=== PATIENT | female | born 2000 | race Hispanic/Latino ===

== ENCOUNTER 2019-02-06 11:15 | Emergency (ER) | payer OTHER ==
[~2019-02-06] VITALS: Ht 157.5 cm; Wt 69.9 kg
--- OUTSIDE RECORDS SUMMARY | 2019-02-06 11:18 | XMS REPORT ---
[facility] Address Unknown Phone Unavailable Care Team Providers Care Eyelet Operator Name Role Phone Unavailable Unavailable Payers Payer Name Policy Type Policy Number Effective Date Expiration Date Problems This patient has no known problems. Allergies, Adverse Reactions, Alerts Allergy Name Allergy Type Status Severity Reaction(s) Onset Date Inactive Date Treating Clinician Comments No Known Allergies DA Active U 2018-12-12 00:00:00 No Known Allergies DA Active U 2017-10-05 00:00:00 Medications This patient has no known medications. Encounters Start Date/Time End Date/Time Encounter Type Admission Type Attending Clinicians Care Facility Care Department Encounter ID 2019-03-26 00:00:00 2019-03-26 00:00:00 Outpatient [facility] [id number] 2019-03-26 00:00:00 2019-03-26 00:00:00 Outpatient [facility] [id number] 2019-03-12 00:00:00 2019-03-12 00:00:00 Outpatient [facility] [id number] 2019-03-11 00:00:00 2019-03-11 00:00:00 Outpatient [facility] [id number] 2019-03-04 00:00:00 2019-03-04 00:00:00 Outpatient [facility] [id number] 2019-02-21 00:00:00 2019-02-21 00:00:00 Outpatient [facility] [id number] 2019-02-17 00:00:00 2019-02-17 00:00:00 Outpatient [facility] [id number] 2019-02-12 00:00:00 2019-02-12 00:00:00 Outpatient [facility] [id number] 2019-01-08 00:00:00 2019-01-08 00:00:00 Outpatient [facility] [id number] 2019-01-07 00:00:00 2019-01-07 00:00:00 Outpatient [facility] [id number] 2019-01-02 00:00:00 2019-01-02 00:00:00 Outpatient [facility] [id number] 2019-01-02 00:00:00 2019-01-02 00:00:00 Outpatient [facility] [id number] 2019-01-01 00:00:00 2019-01-01 00:00:00 Outpatient [facility] [id number] 2018-12-27 12:59:20 2018-12-27 12:59:20 Outpatient [facility] [id number] 2018-12-27 00:00:00 2018-12-27 00:00:00 Outpatient [facility] [id number] 2018-12-26 00:00:00 2018-12-26 00:00:00 Outpatient [facility] [id number] 2018-12-25 00:00:00 2018-12-25 00:00:00 Outpatient [facility] [id number] 2018-12-24 15:47:49 2018-12-24 15:47:49 Outpatient [facility] [id number] 2018-12-24 12:56:40 2018-12-24 12:56:40 Outpatient [facility] [id number] 2018-12-24 00:00:00 2018-12-24 00:00:00 Outpatient [facility] [id number] 2018-12-18 10:04:25 2018-12-18 10:04:25 Outpatient [facility] [id number] 2018-11-27 00:00:00 2018-11-27 00:00:00 Outpatient [facility] [id number] 2018-11-27 00:00:00 2018-11-27 00:00:00 Outpatient [facility] [id number] 2018-11-25 13:39:46 2018-11-25 13:39:46 Outpatient [facility] [id number] 2018-11-25 12:56:47 2018-11-25 12:56:47 Outpatient [facility] [id number] 2018-11-25 00:00:00 2018-11-25 00:00:00 Outpatient [facility] [id number] 2018-11-25 00:00:00 2018-11-25 00:00:00 Outpatient [facility] [id number] 2018-11-20 16:14:00 2018-11-20 16:14:00 Emergency [facility] [id number] 2018-11-19 00:00:00 2018-11-19 00:00:00 Outpatient [facility] [id number] 2018-11-18 13:56:45 2018-11-18 13:56:45 Outpatient [facility] [id number] 2018-11-07 00:00:00 2018-11-07 00:00:00 Outpatient [facility] [id number] 2018-10-24 08:45:36 2018-10-24 08:45:36 Outpatient [facility] [id number] 2018-10-02 13:53:03 2018-10-02 13:53:03 Outpatient [facility] [id number] 2018-09-04 07:49:09 2018-09-04 07:49:09 Outpatient [facility] [id number] 2018-08-07 16:33:36 2018-08-07 16:33:36 Outpatient [facility] [id number] 2018-08-07 15:18:04 2018-08-07 15:18:04 Outpatient [facility] [id number] 2018-07-10 00:00:00 2018-07-10 00:00:00 Outpatient [facility] [id number] 2018-06-25 09:31:53 2018-06-25 09:31:53 Outpatient [facility] [id number] 2018-04-26 00:00:00 2018-04-26 00:00:00 Outpatient [facility] [id number] 2018-04-17 00:00:00 2018-04-17 00:00:00 Outpatient [facility] [id number] 2018-03-11 10:42:48 2018-03-11 10:42:48 Outpatient [facility] [id number] 2018-02-26 00:00:00 2018-02-26 00:00:00 Outpatient [facility] [id number] 2018-02-19 00:00:00 2018-02-19 00:00:00 Outpatient [facility] [id number] 2018-01-30 14:31:16 2018-01-30 14:31:16 Outpatient [facility] [id number] 2018-01-17 00:00:00 2018-01-17 00:00:00 Outpatient [facility] [id number] 2018-01-16 16:44:28 2018-01-16 16:44:28 Outpatient [facility] [id number] 2018-01-16 15:40:26 2018-01-16 15:40:26 Outpatient [facility] [id number] 2018-01-16 00:00:00 2018-01-16 00:00:00 Outpatient [facility] [id number] 2017-12-20 00:00:00 2017-12-20 00:00:00 Outpatient [facility] [id number] 2017-12-10 00:00:00 2017-12-10 00:00:00 Outpatient [facility] [id number] 2017-11-19 00:00:00 2017-11-19 00:00:00 Outpatient [facility] [id number] 2017-10-30 00:00:00 2017-10-30 00:00:00 Outpatient [facility] [id number] 2017-10-24 09:45:46 2017-10-24 09:45:46 Outpatient [facility] [id number] 2017-10-22 09:25:41 2017-10-22 09:25:41 Outpatient [facility] [id number] 2017-10-09 03:36:15 2017-10-09 03:36:[address] [facility] [id number] 2017-10-08 14:17:05 2017-10-08 14:17:05 Outpatient [facility] [id number] 2017-10-08 13:16:43 2017-10-08 13:16:43 Outpatient [facility] [id number] 2017-09-24 11:23:00 2017-09-24 11:23:00 Outpatient [facility] [id number] 2017-09-21 19:25:13 2017-09-21 19:25:[address] [facility] [id number] 2017-09-03 13:41:01 2017-09-03 13:41:01 Outpatient [facility] [id number] 2017-08-29 10:48:43 2017-08-29 10:48:43 Outpatient [facility] [id number] 2017-08-08 13:45:23 2017-08-08 13:45:23 Outpatient [facility] [id number] 2017-07-27 11:15:32 2017-07-27 11:15:32 Emergency [facility] [id number] 2017-07-27 09:36:05 2017-07-27 09:36:05 Emergency [facility] [id number] Results Test Description Test Time Test Comments Text Results Atomic Results Result Comments URINALYSIS COMPLETE 2019-02-06 02:44:00 UA COLOR (test code=COLU) Light-Yellow YELLOW UA APPEARANCE (test code=APPU) CLEAR CLEAR UA GLUCOSE DIPSTICK (test code=DGLUU) NEGATIVE mg/dL NEGATIVE UA BILIRUBIN DIPSTICK (test code=BILU) NEGATIVE mg/dL NEGATIVE UA KETONE DIPSTICK (test code=KETU) NEGATIVE mg/dL NEGATIVE UA SPECIFIC GRAVITY (test code=SGU) 1.009 1.001-1.035 UA BLOOD DIPSTICK (test code=SOREN) Negative mg/dL NEGATIVE UA PH DIPSTICK (test code=LISBETH) 7.5 5.0-8.0 UA PROTEIN DIPSTICK (test code=PROU) NEGATIVE mg/dL NEGATIVE UA UROBILINIOGEN DIPSTICK (test code=URO) Normal mg/dL NEGATIVE UA NITRITE DIPSTICK (test code=HELLEN) NEGATIVE NEGATIVE UA LEUKOCYTE ESTERASE W REFLEX (test code=LEUUR) NEGATIVE Ruthy/uL NEGATIVE UA WBC (test code=WBCU) 0-5 per HPF 0-5 UA RBC (test code=RBCU) 0-2 #/HPF 0-5 UA EPITHELIAL CELLS (test code=EPIU) FEW per HPF FEW UA BACTERIA (test code=BACU) NONE SEEN #/HPF NONE UA MUCUS (test code=MUCU) FEW #/LPF FEW Urine Source? Clean CatchBASIC METABOLIC [id number] 02:49:00* Test Item Value Reference Range Comments SODIUM (test code=NA) 138 mmol/L 136-145 POTASSIUM (test code=K) 3.6 mmol/L 3.5-5.1 CHLORIDE (test code=CL) 105.0 mmol/L 98-107 CARBON DIOXIDE (test code=CO2) 23.0 mmol/L 21-32 ANION GAP (test code=GAP) 13.6 10-20 GLUCOSE (test code=GLU) 79 mg/dL 74-106 BLOOD UREA NITROGEN (test code=BUN) 9 mg/dL 7-18 GLOMERULAR FILTRATION RATE (test code=GFR) > 60 mL/min >=60 Estimated GFR by using Modified MDRD formula.Chronic kidney disease is defined as either kidney damageor GFR <60 mL/min/1.73 m2 for >3 months. CREATININE (test code=CREAT) 0.70 mg/dL 0.55-1.02 Note change in reference range due to change in reagent. BUN/CREATININE RATIO (test code=BUN/CREA) 12.9 10-20 CALCIUM (test code=CA) 9.3 mg/dL 8.5-10.1 HEPATIC FUNCTION [id number] 02:49:00* Test Item Value Reference Range Comments TOTAL PROTEIN (test code=PROT) 8.3 gram/dL 6.4-8.2 ALBUMIN (test code=ALB) 3.8 g/dL 3.4-5.0 GLOBULIN (test code=GLOB) 4.5 gram/dL 2.7-4.2 ALBUMIN/GLOBULIN RATIO (test code=A/G) 0.8 0.75-1.50 BILIRUBIN TOTAL (test code=BILT) 0.30 mg/dL 0.0-1.0 BILIRUBIN DIRECT (test code=BILD) 0.08 mg/dL 0.0-0.20 SGOT/AST (test code=AST) 8 IUnit/L 15-37 SGPT/ALT (test code=ALT) 20 IUnit/L 12-78 ALKALINE PHOSPHATASE TOTAL (test code=ALKP) 98 IUnit/L 45-117 Note change in reference range due to change in reagent. [id number] 02:49:00* Test Item Value Reference Range Comments LIPASE (test code=LIP) 73 U/L 73.0-393.0 HCG SERUM [id number] 02:49:00* Test Item Value Reference Range Comments HCG SERUM BETA (test code=HCG) 756118.0 mIU/mL 0-3 Interfering substances present in the serum of somepatients may cause a false-positive result in this assay.Questionable elevations in serum hCG should be confirmedwith a urine hCG. Suspected Trophoblastic Neoplasms shouldnot be diagnosed based on serun hCG/beta hCG alone. Theymust be confirmed by clinical history and tissue diagnosis.INTERPRETATION:B-HCG LEVELS <5 SHOULD BE CONSIDERED "NEGATIVE." *WHEN BODERLINE RESULTS ARE ENCOUNTERED,PATIENT SAMPLESSHOULD BE REDRAWN 48 HOURS. 0-1 WEEKS AFTER CONCEPTION 5-50 MIU/ML1-2 WEEKS AFTER CONCEPTION 50-500 MIU/ML2-3 WEEKS AFTER CONCEPTION 100 -5,000 MIU/ML3-4 WEEKS AFTER CONCEPTION 500-10,000 MIU/ML4-5 WEEKS AFTER CONCEPTION 1000 -50,000 MIU/ML5-6 WEEKS AFTER CONCEPTION 10,000-100,000 MIU/ML6-8 WEEKS AFTER CONCEPTION 15,000- 200,000 MIU/ML2-3 MONTHS AFTER CONCEPTION 10,000-100,000 MIU/ML BASIC METABOLIC [id number] 02:31:00* Test Item Value Reference Range Comments SODIUM (test code=NA) 138 mmol/L 136-145 POTASSIUM (test code=K) 3.6 mmol/L 3.5-5.1 CHLORIDE (test code=CL) 105.0 mmol/L 98-107 CARBON DIOXIDE (test code=CO2) mmol/L 21-32 ANION GAP (test code=GAP) 10-20 GLUCOSE (test code=GLU) mg/dL 74-106 BLOOD UREA NITROGEN (test code=BUN) mg/dL 7-18 GLOMERULAR FILTRATION RATE (test code=GFR) mL/min >=60 CREATININE (test code=CREAT) mg/dL 0.55-1.02 BUN/CREATININE RATIO (test code=BUN/CREA) 10-20 CALCIUM (test code=CA) mg/dL 8.5-10.1 HEPATIC FUNCTION [id number] 02:31:00* Test Item Value Reference Range Comments TOTAL PROTEIN (test code=PROT) gram/dL 6.4-8.2 ALBUMIN (test code=ALB) g/dL 3.4-5.0 GLOBULIN (test code=GLOB) gram/dL 2.7-4.2 ALBUMIN/GLOBULIN RATIO (test code=A/G) 0.75-1.50 BILIRUBIN TOTAL (test code=BILT) mg/dL 0.0-1.0 BILIRUBIN DIRECT (test code=BILD) mg/dL 0.0-0.20 SGOT/AST (test code=AST) IUnit/L 15-37 SGPT/ALT (test code=ALT) IUnit/L 12-78 ALKALINE PHOSPHATASE TOTAL (test code=ALKP) IUnit/L 45-117 [id number] 02:31:00* Test Item Value Reference Range Comments LIPASE (test code=LIP) U/L 73.0-393.0 HCG SERUM [id number] 02:31:00* Test Item Value Reference Range Comments HCG SERUM BETA (test code=HCG) mIU/mL 0-3 URINALYSIS [id number] 02:18:00* Test Item Value Reference Range Comments UA COLOR (test code=COLU) COLORLESS YELLOW UA APPEARANCE (test code=APPU) CLEAR CLEAR UA GLUCOSE DIPSTICK (test code=DGLUU) NEGATIVE mg/dL NEGATIVE UA BILIRUBIN DIPSTICK (test code=BILU) NEGATIVE mg/dL NEGATIVE UA KETONE DIPSTICK (test code=KETU) NEGATIVE mg/dL NEGATIVE UA SPECIFIC GRAVITY (test code=SGU) 1.007 1.001-1.035 UA BLOOD DIPSTICK (test code=SOREN) Negative mg/dL NEGATIVE UA PH DIPSTICK (test code=LISBETH) 6.5 5.0-8.0 UA PROTEIN DIPSTICK (test code=PROU) NEGATIVE mg/dL NEGATIVE UA UROBILINIOGEN DIPSTICK (test code=URO) Normal mg/dL NEGATIVE UA NITRITE DIPSTICK (test code=HELLEN) NEGATIVE NEGATIVE UA LEUKOCYTE ESTERASE W REFLEX (test code=LEUUR) NEGATIVE Ruthy/uL NEGATIVE UA WBC (test code=WBCU) 0-5 per HPF 0-5 UA RBC (test code=RBCU) NONE SEEN #/HPF 0-5 UA EPITHELIAL CELLS (test code=EPIU) FEW per HPF FEW UA BACTERIA (test code=BACU) NONE SEEN #/HPF NONE Urine Source? Clean CatchCBC W/O [id number] 02:17:00* Test Item Value Reference Range Comments WHITE BLOOD CELL (test code=WBC) 17.9 K/mm3 4.5-12.5 RED BLOOD CELL (test code=RBC) 4.48 mill/mm3 3.7-5.2 HEMOGLOBIN (test code=HGB) 13.5 gram/dL 11.5-15.5 HEMATOCRIT (test code=HCT) 40.2 % 36.0-46.0 MEAN CELL VOLUME (test code=MCV) 89.7 fL 80-98 MEAN CELL HGB (test code=MCH) 30.1 picogram 27.0-33.0 MEAN CELL HGB CONCETRATION (test code=MCHC) 33.6 gram/dL 33.0-36.0 RED CELL DISTRIBUTION WIDTH (test code=RDW) 13.1 % 11.6-16.2 PLATELET COUNT (test code=PLT) 245 K/mm3 150-450 MEAN PLATELET VOLUME (test code=MPV) 11.7 fL 6.7-11.0 CBC W/O [id number] 02:14:00* Test Item Value Reference Range Comments WHITE BLOOD CELL (test code=WBC) K/mm3 4.5-12.5 RED BLOOD CELL (test code=RBC) mill/mm3 3.7-5.2 HEMOGLOBIN (test code=HGB) 13.5 gram/dL 11.5-15.5 HEMATOCRIT (test code=HCT) 40.2 % 36.0-46.0 MEAN CELL VOLUME (test code=MCV) fL 80-98 MEAN CELL HGB (test code=MCH) picogram 27.0-33.0 MEAN CELL HGB CONCETRATION (test code=MCHC) gram/dL 33.0-36.0 RED CELL DISTRIBUTION WIDTH (test code=RDW) % 11.6-16.2 PLATELET COUNT (test code=PLT) K/mm3 150-450 MEAN PLATELET VOLUME (test code=MPV) fL 6.7-11.0 - US PREG UT [id number] 14:33:00 Patient Name: ORLANDO DE LA GARZA Unit No: [id number] EXAMS: CPT CODE: [id number] US PREG UT TRANSVAGINAL 42491 CLINICAL HISTORY: , 4 weeks , pelvic pain. COMPARISON: None. Real-time ultrasound examination of pelvis was performed using transabdominal and endovaginal approach. Uterus measures 8.2 x 3.8 x 4.9 cm in greatest dimensions with a 2 mm intrauterine saclike structure. Yolk sac or embryo is not identified within this saclike structure. Correlation with sequential hCG titers and short-term follow-up with repeat ultrasound in 7-10 days is recommended to evaluate progress of . Changes related to C- section are present in lower uterine segment. It is no evidence of uterine fibroid or other significant uterine abnormality. Right ovary measures 44 x 39 x 47 mm and contains a 35 x 39 x 40 mm cyst with a few low-level echoes within it. It has benign sonographic appearance. Left ovary measures 33 x 15 x 22 mm and has normal sonographic appearance. There is no extraovarian adnexal mass or free fluid in the pelvis. IMPRESSION: 1. 2 mm sac like structure in the uterus without a yolk sac or embryo. This most likely represents an early intrauterine gestation. Correlation with hCG titers and short-term follow-up is recommended for confirmation. 2. Benign-appearing cysts in the right ovary. 3. No extraovarian adnexal masses seen. at 1433 Reported and signed by: Davian Marks MD CC: Arlen Lee; Allan Stewart MD Technologist: Mimi Baxter RDMS Probe: [id number] Trnscrbd D/ (2912) t.ANALY Orig Print D/T: S: 12/25/2018 (7280) [facility] NAME: HOLLIORLANDO Radiology Department PHYS: Allan Talamantes [address] : 2000 AGE: 18 SEX: F [place], [place] [address] LOC: [place] PHONE #: [phone] EXAM DATE: 12/25/2018 STATUS: REG ER FAX #: [phone] RAD NO: Page 1 Signed Report Patient Name: ORALNDO DE LA GARZA Unit No: [id number] EXAMS: CPT CODE: [id number] [facility] TRANSVAGINAL [address] <Continued> [facility] NAME: ORLANDO DE LA GARZA Radiology Department PHYS: Allan Talamantes [address] : 2000 AGE: 18 SEX: F [place], [place] [address] LOC: [place] PHONE #: [phone] EXAM DATE: 12/25/2018 STATUS: RADHA DARLING FAX #: [phone] RAD NO: Page 2 Signed Report - US PREG EVAL 1ST [id number] 14:33:00 Patient Name: ORLANDO DE LA GARZA Unit No: [id number] EXAMS: CPT CODE: [id number] US PREG EVAL 1ST TRIMTR 97167 CLINICAL HISTORY: , 4 weeks , pelvic pain. COMPARISON: None. Real-time ultrasound examination of pelvis was performed using transabdominal and endovaginal approach. Uterus measures 8.2 x 3.8 x 4.9 cm in greatest dimensions with a 2 mm intrauterine saclike structure. Yolk sac or embryo is not identified within this saclike structure. Correlation with sequential hCG titers and short-term follow-up with repeat ultrasound in 7-10 days is recommended to evaluate progress of . Changes related to C- section are present in lower uterine segment. It is no evidence of uterine fibroid or other significant uterine abnormality. Right ovary measures 44 x 39 x 47 mm and contains a 35 x 39 x 40 mm cyst with a few low-level echoes within it. It has benign sonographic appearance. Left ovary measures 33 x 15 x 22 mm and has normal sonographic appearance. There is no extraovarian adnexal mass or free fluid in the pelvis. IMPRESSION: 1. 2 mm sac like structure in the uterus without a yolk sac or embryo. This most likely represents an early intrauterine gestation. Correlation with hCG titers and short-term follow-up is recommended for confirmation. 2. Benign-appearing cysts in the right ovary. 3. No extraovarian adnexal masses seen. at 1438 Reported and signed by: Davian Marks MD CC: Arlen Lee; Allan Stewart MD Technologist: Mimi Baxter RDMS Probe: Trnscrbd D/ (7737) t.SDR.YOS Orig Print D/T: S: 12/25/2018 (1657) [facility] NAME: ORLANDO DE LA GARZA Radiology Department PHYS: Allan Talamantes [address] : 2000 AGE: 18 SEX: F [place] [address] LOC: [place] PHONE #: [phone] EXAM DATE: 12/25/2018 STATUS: REG ER FAX #: [phone] RAD NO: Page 1 Signed Report Patient Name: ORLANDO DE LA GARZA Unit No: [id number] EXAMS: CPT CODE: [id number] US PREG EVAL 1ST TRIMTR 24908 <Continued> [facility] NAME: ORLANDO DE LA GARZA Radiology Department PHYS: Allan Talamantes [address] : 2000 AGE: 18 SEX: F [place] [address] LOC: [place] PHONE #: [phone] EXAM DATE: 12/25/2018 STATUS: REG ER FAX #: [phone] RAD NO: Page 2 Signed Report COMPREHENSIVE METABOLIC [id number] 11:56:00* Test Item Value Reference Range Comments SODIUM (test code=NA) 139 mEq/L 135-145 POTASSIUM (test code=K) 4.0 mEq/L 3.5-5.0 CHLORIDE (test code=CL) 105 mEq/L 100-115 CARBON DIOXIDE (test code=CO2) 25 mEq/L 22-31 ANION GAP (test code=GAP) 12.60 10-20 GLUCOSE (test code=GLU) 96 mg/dL 65-110 BLOOD UREA NITROGEN (test code=BUN) 7 mg/dL 7-18 GLOMERULAR FILTRATION RATE (test code=GFR) 107 ml/min >60 CREATININE (test code=CREAT) 0.7 mg/dL 0.5-1.0 TOTAL PROTEIN (test code=PROT) 7.9 gm/dL 6.3-8.2 ALBUMIN (test code=ALB) 3.9 gm/dL 3.4-4.8 CALCIUM (test code=CA) 8.8 mg/dL 8.4-10.2 BILIRUBIN TOTAL (test code=BILT) 0.3 mg/dL 0.2-1.0 SGOT/AST (test code=AST) 14 units/L 15-37 SGPT/ALT (test code=ALT) 18 units/L 12-78 ALKALINE PHOSPHATASE TOTAL (test code=ALKP) 103 units/L 46-116 HCG [id number] 11:56:00* Test Item Value Reference Range Comments HCG SERUM (test code=HCG) 510 INTERPRETATION:VALUES BETWEEN 15-20 milliInternational units/mL NEED TO BERETESTED WITHIN 48 HOURS. All units for these ranges are in milliInternationalunits/mL0-1 WK AFTER CONCEPTION 0-50 1-2 WKS AFTER CONCEPTION 40-3002-3 WKS AFTER CONCEPTION 100-1,0003-4 WKS AFTER CONCEPTION 500-6,0001-2 MONTHS AFTER CONCEPTION 5,000-200,0002-3 MONTHS AFTER CONCEPTION 10,000-100,0002ND TRIMESTER 3,000-50,0003RD TRIMESTER 1,000-50,000 SPECIMENS WITH AN HCG LEVEL FROM 0-6 milliInternationalunits/mL SHOULD BE CONSIDERED NEGATIVE CBC W/AUTO [id number] 11:20:00* Test Item Value Reference Range Comments WHITE BLOOD CELL (test code=WBC) 10.7 K/mm3 6.6-12.1 RED BLOOD CELL (test code=RBC) 4.42 M/mm3 3.45-5.01 HEMOGLOBIN (test code=HGB) 13.1 g/dL 10.7-13.9 HEMATOCRIT (test code=HCT) 39.3 % 32.1-42.1 MEAN CELL VOLUME (test code=MCV) 89 fL 84.1-94.8 MEAN CELL HGB (test code=MCH) 29.6 pg 27-35 MEAN CELL HGB CONCETRATION (test code=MCHC) 33.3 gm/dL 32.2-34.1 RED CELL DISTRIBUTION WIDTH (test code=RDW) 12.5 % 12.4-16.5 PLATELET COUNT (test code=PLT) 226 K/mm3 133-385 IMMATURE PLATELET FRACTION (test code=IPF) 0.0 % 0.0-10.8 MEAN PLATELET VOLUME (test code=MPV) 11.0 fl 9.1-12.7 NEUTROPHIL % (test code=NT%) 68.6 % 56.5-79.4 LYMPHOCYTE % (test code=LY%) 24.4 % 14.3-34.3 MONOCYTE % (test code=MO%) 5.3 % 5.1-10.4 EOSINOPHIL % (test code=EO%) 0.8 % 0.1-3.0 BASOPHIL % (test code=BA%) 0.5 % 0.1-1.0 NEUTROPHIL # (test code=NT#) 7.4 K/mm3 LYMPHOCYTE # (test code=LY#) 2.6 K/mm3 MONOCYTE # (test code=MO#) 0.6 K/mm3 EOSINOPHIL # (test code=EO#) 0.09 K/mm3 BASOPHIL # (test code=BA#) 0.1 K/mm3 RBC MORPHOLOGY REQUIRED (test code=RBCM) NORMAL NORMAL PLATELET MORPHOLOGY REQUIRED (test code=PLTMR) NORMAL NORMAL UA RFLX MICR CULT IF [id number] 11:14:00* Test Item Value Reference Range Comments UA COLOR (test code=COLU) YELLOW YELLOW UA APPEARANCE (test code=APPU) Slightly-Cloudy CLEAR UA GLUCOSE DIPSTICK (test code=DGLUU) NEGATIVE NEG UA BILIRUBIN DIPSTICK (test code=BILU) NEGATIVE NEG UA KETONE DIPSTICK (test code=KETU) TRACE NEG UA SPECIFIC GRAVITY (test code=SGU) 1.021 1.001-1.035 UA BLOOD DIPSTICK (test code=SOREN) NEG NEG UA PH DIPSTICK (test code=LISBETH) 6.0 5-9 UA PROTEIN DIPSTICK (test code=PROU) NEGATIVE NEG UA UROBILINIOGEN DIPSTICK (test code=URO) NEGATIVE mg/dL NEG UA NITRITE DIPSTICK (test code=HELLEN) NEG NEG UA LEUKOCYTE ESTERASE DIPSTICK (test code=LEUU) NEG NEG UA WBC (test code=WBCU) 3-5 #/hpf NONE SEEN UA RBC (test code=RBCU) 0-2 #/hpf NONE SEEN UA EPITHELIAL CELLS (test code=EPIU) RARE #/HPF RARE-FEW UA MUCUS (test code=MUCU) 4+ NONE SEEN Indication for culture: Suprapubic Pain- XR CHEST 1 [id number] 02:30:00 FAX: Almas Jennings MD [place]: B St: REG Name: ORLANDO VAZQUEZ [facility] : [birth year] Age/S: 18/F [address] [facility] Unit #: [id number] Loc: [place], [place] [address] Phys: Almas Jennings MD Acct: [id number] Dis Date: Status: REG ER PHONE #: [phone] Exam Date: 12/12/2018 021 FAX #: [phone] Reason: CHEST PAIN EXAMS: CPT CODE: [id number] XR CHEST 1 V 88620 AFTER HOURS SERVICE ON: 12/12/2018 2:30 AM AP Portable Chest Location Code M12 HISTORY: CHEST PAIN FINDINGS: There are no inf iltrates. There are no pleural effusions. There is no pneumothorax. Cardia c silhouette and mediastinum appear within normal limits. IMPRESSION: No active pulmonary findings. at 0230 Reported and signed by: Alicja Altamirano M.D. CC: Almas Jennings MD Technologist: Hernandez SHERWOOD(Naomi) Trnscrd Date/Time/By: 12/12/2018 (0230) : By: [email or web address] Orig Print D/T: S: 12/12/2018 (0233) PAGE 1 Signed Report CBC W/O [id number] 01:16:00* Test Item Value Reference Range Comments WHITE BLOOD CELL (test code=WBC) 15.6 K/mm3 4.5-12.5 RED BLOOD CELL (test code=RBC) 4.60 mill/mm3 3.7-5.2 HEMOGLOBIN (test code=HGB) 13.3 gram/dL 11.5-15.5 HEMATOCRIT (test code=HCT) 41.8 % 36.0-46.0 MEAN CELL VOLUME (test code=MCV) 90.9 fL 80-98 MEAN CELL HGB (test code=MCH) 28.9 picogram 27.0-33.0 MEAN CELL HGB CONCETRATION (test code=MCHC) 31.8 gram/dL 33.0-36.0 RED CELL DISTRIBUTION WIDTH (test code=RDW) 12.2 % 11.6-16.2 PLATELET COUNT (test code=PLT) 252 K/mm3 150-450 MEAN PLATELET VOLUME (test code=MPV) 11.0 fL 6.7-11.0 BASIC METABOLIC [id number] 00:49:00* Test Item Value Reference Range Comments SODIUM (test code=NA) 139 mmol/L 136-145 POTASSIUM (test code=K) 3.7 mmol/L 3.5-5.1 CHLORIDE (test code=CL) 106.0 mmol/L 98-107 CARBON DIOXIDE (test code=CO2) 27.0 mmol/L 21-32 ANION GAP (test code=GAP) 9.7 10-20 GLUCOSE (test code=GLU) 100 mg/dL 74-106 BLOOD UREA NITROGEN (test code=BUN) 8 mg/dL 7-18 GLOMERULAR FILTRATION RATE (test code=GFR) > 60 mL/min >=60 Estimated GFR by using Modified MDRD formula.Chronic kidney disease is defined as either kidney damageor GFR <60 mL/min/1.73 m2 for >3 months. CREATININE (test code=CREAT) 0.70 mg/dL 0.55-1.02 Note change in reference range due to change in reagent. BUN/CREATININE RATIO (test code=BUN/CREA) 11.4 10-20 CALCIUM (test code=CA) 9.4 mg/dL 8.5-10.1 HCG SERUM [id number] 00:49:00* Test Item Value Reference Range Comments HCG SERUM QUAL (test code=HCGQL) NEGATIVE NEGATIVE This HCGQL test is NOT applicable for MALE patients.Check with nurse about probable order error.If Tumor Marker Test needed, nurse should order test "HCGTU"(Test #[id number]) [id number] 00:49:00* Test Item Value Reference Range Comments TROPONIN-I (test code=TROPI) <0.015 ng/mL 0-0.045 BASIC METABOLIC [id number] 00:44:00* Test Item Value Reference Range Comments SODIUM (test code=NA) 139 mmol/L 136-145 POTASSIUM (test code=K) 3.7 mmol/L 3.5-5.1 CHLORIDE (test code=CL) 106.0 mmol/L 98-107 CARBON DIOXIDE (test code=CO2) mmol/L 21-32 ANION GAP (test code=GAP) 10-20 GLUCOSE (test code=GLU) mg/dL 74-106 BLOOD UREA NITROGEN (test code=BUN) mg/dL 7-18 GLOMERULAR FILTRATION RATE (test code=GFR) mL/min >=60 CREATININE (test code=CREAT) mg/dL 0.55-1.02 BUN/CREATININE RATIO (test code=BUN/CREA) 10-20 CALCIUM (test code=CA) mg/dL 8.5-10.1 HCG SERUM [id number] 00:44:00* Test Item Value Reference Range Comments HCG SERUM QUAL (test code=HCGQL) NEGATIVE NEGATIVE This HCGQL test is NOT applicable for MALE patients.Check with nurse about probable order error.If Tumor Marker Test needed, nurse should order test "HCGTU"(Test #550.36987) [id number] 00:44:00* Test Item Value Reference Range Comments TROPONIN-I (test code=TROPI) ng/mL 0-0.045 BASIC METABOLIC [id number] 00:40:00* Test Item Value Reference Range Comments SODIUM (test code=NA) 139 mmol/L 136-145 POTASSIUM (test code=K) 3.7 mmol/L 3.5-5.1 CHLORIDE (test code=CL) 106.0 mmol/L 98-107 CARBON DIOXIDE (test code=CO2) mmol/L 21-32 ANION GAP (test code=GAP) 10-20 GLUCOSE (test code=GLU) mg/dL 74-106 BLOOD UREA NITROGEN (test code=BUN) mg/dL 7-18 GLOMERULAR FILTRATION RATE (test code=GFR) mL/min >=60 CREATININE (test code=CREAT) mg/dL 0.55-1.02 BUN/CREATININE RATIO (test code=BUN/CREA) 10-20 CALCIUM (test code=CA) mg/dL 8.5-10.1 HCG SERUM [id number] 00:40:00* Test Item Value Reference Range Comments HCG SERUM QUAL (test code=HCGQL) NEGATIVE [id number] 00:40:00* Test Item Value Reference Range Comments TROPONIN-I (test code=TROPI) ng/mL 0-0.045 [id number] 00:37:00* Test Item Value Reference Range Comments D-DIMER (test code=DDIMER) 234.00 ng/mLFEU 0-500 Clinical Cut-off value for D- Dimer is 500 ng/mL FEU. Comment: The [employer] D-Dimer assay is intended for use asan aid in the diagnosis of venous thromboembolism (VTE)[deep vein thrombosis (DVT) or pulmonary embolism (PE)].The measurement of D-Dimer should not be used as an aid inthe diagnosis of VTE, in patient with: -Therapeutic dose anticoagulant therapy for >24 hours -Fibrinolytic therapy within previous 7 days -Trauma or surgery within previous 4 weeks -Disseminated malignancies - Aortic aneurysm -Sepsis, severe infections, pneumonia, severe skin infections -Liver cirrhosis - BASIC METABOLIC [id number] 14:11:00* Test Item Value Reference Range Comments SODIUM (test code=NA) 141 mmol/L 136-145 POTASSIUM (test code=K) 4.1 mmol/L 3.5-5.1 CHLORIDE (test code=CL) 110.0 mmol/L 98-107 CARBON DIOXIDE (test code=CO2) 26.0 mmol/L 21-32 ANION GAP (test code=GAP) 9.1 10-20 GLUCOSE (test code=GLU) 93 mg/dL 74-106 BLOOD UREA NITROGEN (test code=BUN) 12 mg/dL 7-18 GLOMERULAR FILTRATION RATE (test code=GFR) > 60 mL/min >=60 Estimated GFR by using Modified MDRD formula.Chronic kidney disease is defined as either kidney damageor GFR <60 mL/min/1.73 m2 for >3 months. CREATININE (test code=CREAT) 0.70 mg/dL 0.55-1.02 Note change in reference range due to change in reagent. BUN/CREATININE RATIO (test code=BUN/CREA) 17.1 10-20 CALCIUM (test code=CA) 9.0 mg/dL 8.5-10.1 HCG SERUM [id number] 14:11:00* Test Item Value Reference Range Comments HCG SERUM QUAL (test code=HCGQL) NEGATIVE NEGATIVE This HCGQL test is NOT applicable for MALE patients.Check with nurse about probable order error.If Tumor Marker Test needed, nurse should order test "HCGTU"(Test #550.35774) [id number] 14:11:00* Test Item Value Reference Range Comments TROPONIN-I (test code=TROPI) <0.015 ng/mL 0-0.045 BASIC METABOLIC [id number] 14:10:00* Test Item Value Reference Range Comments SODIUM (test code=NA) 141 mmol/L 136-145 POTASSIUM (test code=K) 4.1 mmol/L 3.5-5.1 CHLORIDE (test code=CL) 110.0 mmol/L 98-107 CARBON DIOXIDE (test code=CO2) 26.0 mmol/L 21-32 ANION GAP (test code=GAP) 9.1 10-20 GLUCOSE (test code=GLU) 93 mg/dL 74-106 BLOOD UREA NITROGEN (test code=BUN) 12 mg/dL 7-18 GLOMERULAR FILTRATION RATE (test code=GFR) > 60 mL/min >=60 Estimated GFR by using Modified MDRD formula.Chronic kidney disease is defined as either kidney damageor GFR <60 mL/min/1.73 m2 for >3 months. CREATININE (test code=CREAT) 0.70 mg/dL 0.55-1.02 Note change in reference range due to change in reagent. BUN/CREATININE RATIO (test code=BUN/CREA) 17.1 10-20 CALCIUM (test code=CA) 9.0 mg/dL 8.5-10.1 HCG SERUM [id number] 14:10:00* Test Item Value Reference Range Comments HCG SERUM QUAL (test code=HCGQL) NEGATIVE [id number] 14:10:00* Test Item Value Reference Range Comments TROPONIN-I (test code=TROPI) <0.015 ng/mL 0-0.045 [id number] 14:03:00* Test Item Value Reference Range Comments D-DIMER (test code=DDIMER) 376.00 ng/mLFEU 0-500 Clinical Cut-off value for D- Dimer is 500 ng/mL FEU. Comment: The [employer] D-Dimer assay is intended for use asan aid in the diagnosis of venous thromboembolism (VTE)[deep vein thrombosis (DVT) or pulmonary embolism (PE)].The measurement of D-Dimer should not be used as an aid inthe diagnosis of VTE, in patient with: -Therapeutic dose anticoagulant therapy for >24 hours -Fibrinolytic therapy within previous 7 days -Trauma or surgery within previous 4 weeks -Disseminated malignancies - Aortic aneurysm -Sepsis, severe infections, pneumonia, severe skin infections -Liver cirrhosis - BASIC METABOLIC [id number] 13:59:00* Test Item Value Reference Range Comments SODIUM (test code=NA) 141 mmol/L 136-145 POTASSIUM (test code=K) 4.1 mmol/L 3.5-5.1 CHLORIDE (test code=CL) 110.0 mmol/L 98-107 CARBON DIOXIDE (test code=CO2) mmol/L 21-32 ANION GAP (test code=GAP) 10-20 GLUCOSE (test code=GLU) mg/dL 74-106 BLOOD UREA NITROGEN (test code=BUN) mg/dL 7-18 GLOMERULAR FILTRATION RATE (test code=GFR) mL/min >=60 CREATININE (test code=CREAT) mg/dL 0.55-1.02 BUN/CREATININE RATIO (test code=BUN/CREA) 10-20 CALCIUM (test code=CA) mg/dL 8.5-10.1 HCG SERUM [id number] 13:59:00* Test Item Value Reference Range Comments HCG SERUM QUAL (test code=HCGQL) NEGATIVE [id number] 13:59:00* Test Item Value Reference Range Comments TROPONIN-I (test code=TROPI) ng/mL 0-0.045 CBC W/O [id number] 13:54:00* Test Item Value Reference Range Comments WHITE BLOOD CELL (test code=WBC) 11.8 K/mm3 4.5-12.5 RED BLOOD CELL (test code=RBC) 4.37 mill/mm3 3.7-5.2 HEMOGLOBIN (test code=HGB) 13.0 gram/dL 11.5-15.5 HEMATOCRIT (test code=HCT) 39.8 % 36.0-46.0 MEAN CELL VOLUME (test code=MCV) 91.1 fL 80-98 MEAN CELL HGB (test code=MCH) 29.7 picogram 27.0-33.0 MEAN CELL HGB CONCETRATION (test code=MCHC) 32.7 gram/dL 33.0-36.0 RED CELL DISTRIBUTION WIDTH (test code=RDW) 12.2 % 11.6-16.2 PLATELET COUNT (test code=PLT) 249 K/mm3 150-450 MEAN PLATELET VOLUME (test code=MPV) 10.6 fL 6.7-11.0 CBC W/O [id number] 13:53:00* Test Item Value Reference Range Comments WHITE BLOOD CELL (test code=WBC) K/mm3 4.5-12.5 RED BLOOD CELL (test code=RBC) mill/mm3 3.7-5.2 HEMOGLOBIN (test code=HGB) 13.0 gram/dL 11.5-15.5 HEMATOCRIT (test code=HCT) 39.8 % 36.0-46.0 MEAN CELL VOLUME (test code=MCV) fL 80-98 MEAN CELL HGB (test code=MCH) picogram 27.0-33.0 MEAN CELL HGB CONCETRATION (test code=MCHC) gram/dL 33.0-36.0 RED CELL DISTRIBUTION WIDTH (test code=RDW) % 11.6-16.2 PLATELET COUNT (test code=PLT) K/mm3 150-450 MEAN PLATELET VOLUME (test code=MPV) fL 6.7-11.0 - XR CHEST 1 [id number] 13:44:00 FAX: Aura Sanford [phone] [place]: St: REG Name: ORLANDO VAZQUEZ [facility] : [birth year] Age/S: 18/F [address] [facility] Unit #: [id number] Loc: [place] [address] Phys: Aura Karimi MD Acct: [id number] Dis Date: Status: REG ER PHONE #: [phone] Exam Date: 11/19/2018 1325 FAX #: [phone] Reason: CHEST PAIN EXAMS: CPT CODE: [id number] XR CHEST 1 V 95286 HISTORY: Chest pain. COMPARISON: None available. No acute infiltrates, effusion or con gestion is noted. The cardiac and mediastinal silhouette are withi n normal limits. IMPRESSION: No acute infilt rates, effusion or congestion. at 5584 Reported and signed by: Kylee Murphy M.D. CC: Aura Karimi MD Technologist: Helen Elena(Naomi) Trnscrd Date/Time/By: 11/19/2018 (5911) : By: [email or web address] Orig Print D/T: S: 11/19/2018 (2018) PAGE 1 Signed Report
--- OUTSIDE RECORDS SUMMARY | 2019-02-06 11:18 | XMS REPORT | Clinical Summary ---
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 Ketone POC neg Neg - Neg Bilirubin POC neg Neg - Neg Nitrate POC neg Neg - Neg Urobilinogen 0.2 0.2 - 1.0 EU/dL POC Leukocyte POC trace Neg - Neg Blood POC trace-intact Neg - Neg Specimen Urine * CHLAM/GC DNA AMPLI (03/11/2018 2:30 PM CDT) Chlamydia trach Negative BT DIAGNOSTIC IMMUNOLOGY N gonorrhoeae Negative BT DIAGNOSTIC This test utilizes 3dim IMMUNOLOGY Aptima Combo 2 Assay for target amplification of rRNA for the qualitative detection of Chlamydia trachomatis and Neisseria gonorrhea. Spec VAGINAL SWAB BT MAIN-STATION Description 3 Specimen Genital, vaginal - Vaginal Swab Performing Organization Address City/[facility] Phone Number SNEHAL BT DIAGNOSTIC IMMUNOLOGY BT MAIN-STATION 3 after 02/05/2018 Insurance Type Payer Benefit Subscriber ID Effective Phone Address Plan / Dates Group [facility] [employer] xxxxxx 2018- [phone] [id number] [place] [address] [place] [employer] xxxxxxxxx 2018-4 [address] [place] [address] [place] [employer] [id number] xxxxxxxxx 2018-P [phone] [facility] [id number]
[2019-02-06] MEDS ORDERED: SODIUM CHLORIDE 0.9% 1000ML 1,000 ML IV STA (11:32)
[2019-02-06] MEDS ORDERED: CEFTRIAXONE SOD 1 GM/NS 50 ML 50 ML IV ONE (11:32)
[2019-02-06] MEDS ORDERED: ONDANSETRON HCL INJ 2MG/ML 2ML 2 MG/ML VIAL IV ONE (11:43)
[2019-02-06 12:10] LABS: BASOPHILS % 0.2 % (0.0-1.0); EOSINOPHILS # (AUTO) 0.1 (0.0-0.4); EOSINOPHILS % 0.6 % (0.0-6.0); HEMATOCRIT 37.7 % (34.2-44.1); HEMOGLOBIN 12.8 g/dL (12.0-16.0); LYMPHOCYTES # (AUTO) 0.9 (1.0-3.2); LYMPHOCYTES % 9.8 % (18.0-39.1); MEAN CORPUSCULAR HEMOGLOBIN 29.9 pg (28-32); MEAN CORPUSCULAR VOLUME 88.1 fL (81-99); MONOCYTES # (AUTO) 0.7 (0.2-0.8); MONOCYTES % 8.2 % (4.4-11.3); NEUTROPHILS # (AUTO) 7.2 (2.1-6.9); NEUTROPHILS % 80.8 % (38.7-80.0); PLATELET COUNT 186 x10e3/uL (140-360); RED BLOOD COUNT 4.28 x10e6/uL (3.6-5.1); RED CELL DISTRIBUTION WIDTH 13.1 % (11.7-14.4)
[2019-02-06 12:26] LABS: ALANINE AMINOTRANSFERASE 14 IU/L (0-55); ALBUMIN 3.7 g/dL (3.5-5.0); ALKALINE PHOSPHATASE 78 IU/L (40-150); ANION GAP 13.1 mmol/L (8-16); BLOOD UREA NITROGEN 5 mg/dL (7-26); BUN/CREATININE RATIO 7 (6-25); CALCIUM 9.6 mg/dL (8.4-10.2); CARBON DIOXIDE 21 mmol/L (22-29); CHLORIDE 106 mmol/L (98-107); EST GLOMERULAR FILTRATION RATE > 60 ML/MIN (60-); GLUCOSE 88 mg/dL (74-118); POTASSIUM 4.1 mmol/L (3.5-5.1); SODIUM 136 mmol/L (136-145)
[2019-02-06 12:36] LABS: BILIRUBIN,URINE NEGATIVE (NEGATIVE); CLARITY,URINE CLEAR (CLEAR); COLOR,URINE YELLOW (YELLOW); KETONES,URINE NEGATIVE (NEGATIVE); LEUKOCYTE ESTERASE ,URINE NEGATIVE (NEGATIVE); NITRITE,URINE NEGATIVE (NEGATIVE); PROTEIN,URINE DIPSTICK NEGATIVE (NEGATIVE); URINE UROBILINOGEN 0.2 mg/dL (0.2 - 1)
[2019-02-06 12:39] LABS: RBC,URINE 0-5 /HPF (0-5); WBC,URINE (MAN) 0-5 /HPF (0-5)
[2019-02-06 12:40] LABS: BACTERIA,URINE RARE /HPF; EPITHELIAL CELLS,URINE FEW /LPF
[2019-02-06 12:54] LABS: HCG,QUANTITATIVE 102686.36 mIU/mL (0-10)
--- NOTE | 2019-02-06 13:30 | Diagnostic Imaging Report ---
Pelvic ultrasound Clinical History: Pelvic pain Discussion: Sonographic evaluation of the pelvis is performed transabdominally and transvaginally. The uterus is 11.3 x 7.9 x 9.0 cm and demonstrates single intrauterine with crown-rump length of 4.34 cm which corresponds to 11 weeks 2 days and mean sac diameter of 4.3 cm which corresponds to 10 weeks 6 days. A yolk sac was identified. There is positive heart tones are 157 bpm. The ovaries have normal size and appearance. The right ovary measures 2.8 x 2.0 x 2.3 cm. The left ovary measures 2.9 x 1.5 x 1.9 cm. No free fluid is identified in the area scanned. Impression: 1. Single living intrauterine with gestational age of 11 weeks 1 day and estimated delivery date of August 27, 2019. Signed by: Dr. Bebo Suárez MD on 02/06/2019 1:26 PM
[2019-02-06 15:23] LABS: PREGNANCY TEST, URINE POSITIVE (NEGATIVE)
== END 2019-02-06 15:23 | disposition home or self-care (01) ==
LOC: ER 11:15
DX: O26.891 Other specified pregnancy related conditions, first trimester (principal); Z3A.11 11 weeks gestation of pregnancy; R10.2 Pelvic and perineal pain
CPT/HCPCS: 36415; 76817; 80053; 81001; 81025; 84702; 85025; 86850; 86900; 87040; 87086; 99284; J0696; J2405; J7030

== ENCOUNTER 2019-11-26 19:05 | Emergency (ER) | payer OTHER ==
[~2019-11-26] VITALS: Ht 157.5 cm; Wt 69.9 kg
--- NOTE | 2019-11-26 21:11 | Emergency Department Note ---
History of Present Illnes History of Present Illness Chief Complaint: Eye, Ear, Nose, Throat, Dental History of Present Illness This is a 19 year old female with left sided ear pain starting yesterday which radiated to the back of her throat with lesions in the back of her throat. seen at bedside non-toxic appearing. . Arrival Mode: Car Onset (how long ago): day(s) Radiation: Reports non-radiation Severity: mild Onset quality: sudden Duration (how long): day(s) (1) Timing of current episode: constant Progression: unchanged Chronicity: new Relieving factors: none Exacerbating factors: none Associated symptoms: Reports denies other symptoms; Denies fever/chills, Denies weakness Treatments prior to arrival: none Past Medical/Family History Physician Review I have reviewed the patient's past medical and family history. Any updates have been documented here. Past Medical History Recent Fever: No Clinical Suspicion of Infectio: No New/Unexplained Change in Ment: No Past Medical History: Asthma Other Medical History: CROHNS Past Surgical History: T&A, Social History Smoking Cessation: Never Smoker Alcohol Use: None Any Illegal Drug Use: No Other Last Tetanus: OOD Review of Systems Review of Systems Constitutional: Reports no symptoms EENTM: Reports ear pain, Reports throat pain Cardiovascular: Reports no symptoms Respiratory: Reports no symptoms Gastrointestinal: Reports no symptoms Genitourinary: Reports no symptoms Musculoskeletal: Reports no symptoms Integumentary: Reports no symptoms Neurological: Reports no symptoms Psychological: Reports no symptoms Endocrine: Reports no symptoms Hematological/Lymphatic: Reports no symptoms Physical Exam Related Data Allergies: Coded Allergies: No Known Allergies (Unverified , 02/06/19) Triage Vital Signs Vital Signs Date Time Temp Pulse Resp B/P (MAP) Pulse Ox O2 Delivery O2 Flow Rate FiO2 11/26/19 21:03 98.8 89 16 131/91 99 Vital signs reviewed: Yes Physical Exam CONSTITUTIONAL Constitutional: Present well-developed, Present well-nourished HENT HENT: Present normocephalic, Present atraumatic, Present oropharynx clear/moist, Present nose normal HENT L/R: Present left bulging TM EYES Eyes: Reports PERRL, Reports conjunctivae normal NECK Neck: Present ROM normal PULMONARY Pulmonary: Present effort normal, Present breath sounds normal CARDIOVASCULAR Cardiovascular: Present regular rhythm, Present heart sounds normal, Present capillary refill normal, Present normal rate GASTROINTESTINAL Abdominal: Present soft, Present nontender, Present bowel sounds normal GENITOURINARY Genitourinary: Present exam deferred SKIN Skin: Present warm, Present dry MUSCULOSKELETAL Musculoskeletal: Present ROM normal NEUROLOGICAL Neurological: Present alert, Present oriented x 3, Present no gross motor or sensory deficits PSYCHOLOGICAL Psychological: Present mood/affect normal, Present judgement normal Assessment & Plan Medical Decision Making MDM 19 yof with sudden onset of L ear pain which radiates to her throat. Denies fever or cough. Patient non-toxic appearing. No testing needed. Empirically treat for strep otitis media/ strep pharyngitis. rx azithromycin Assessment & Plan Final Impression: (1) Otitis media (2) Pharyngitis Depart Disposition: HOME, SELF-CARE LISANDRA QUINTERO DO Nov 26, 2019 21:11
== END 2019-11-26 21:17 | disposition home or self-care (01) ==
LOC: ER 19:05
DX: H66.92 Otitis media, unspecified, left ear (principal); J02.9 Acute pharyngitis, unspecified
CPT/HCPCS: 99282